=== PATIENT | female | born 1995 | race Asian ===

== ENCOUNTER 2020-10-29 21:11 | Emergency (ER) | payer OTHER ==
[~2020-10-29] VITALS: Ht 162.6 cm; Wt 51.7 kg
[2020-10-29 21:13] VITALS: BP 138/89; Ht 162.6 cm; Wt 51.7 kg
== END 2020-10-29 22:47 | disposition home or self-care (01) ==
LOC: ED 21:11
DX: R10.13 Epigastric pain (principal); R00.2 Palpitations